=== PATIENT | male | born 1995 | race Caucasian/White ===

== ENCOUNTER 2019-08-22 20:44 | Emergency (ER) | payer BC ==
[~2019-08-22] VITALS: Ht 172.7 cm; Wt 93.0 kg
[2019-08-22 21:08] LABS: BILIRUBIN,URINE NEGATIVE (NEG); CLARITY,URINE CLEAR; COLOR,URINE YELLOW; NITRITE,URINE NEGATIVE (NEG); PH,URINE 8.5; PROTEIN,URINE 30 mg/dL (NEG-TRACE)
[2019-08-22 21:15] LABS: BACTERIA,URINE FEW /HPF (0-FEW); RBC,URINE OCC /HPF (0-2); SQUAMOUS EPITHELIAL CELL,UR FEW /LPF; WBC,URINE OCC /HPF (0-4)
[2019-08-22] MEDS ORDERED: ONDANSETRON PF 4 MG/2 ML VIAL. ONE (21:17)
[2019-08-22] MEDS ORDERED: IV NORMAL SALINE 1000ML BAG 1,000 ML IV ONE (21:30)
[2019-08-22 21:34] LABS: BASO # 0.1 x10^3/uL (0.0-0.2); BASO % 1 % (0-3); EOS % 0 % (0-3); HEMATOCRIT 46.7 % (39.0-53.0); HEMOGLOBIN 16.1 g/dL (13.0-17.5); LYMPH # 1.6 x10^3/uL (1.0-4.8); LYMPH % 11 % (24-48); MEAN CORPUSCULAR HEMOGLOBIN 29 pg (25-35); MEAN CORPUSCULAR HGB CONC 34 g/dL (31-37); MEAN CORPUSCULAR VOLUME 85 fL (79-100); MONO # 0.8 x10^3/uL (0.0-1.1); MONO % 5 % (0-9); NEUT % 83 % (31-73); PLATELET COUNT 291 x10^3/uL (140-400); RED BLOOD COUNT 5.51 x10^6/uL (4.30-5.70); RED CELL DISTRIBUTION WIDTH 12.7 % (11.5-14.5); WHITE BLOOD COUNT 14.5 x10^3/uL (4.0-11.0)
[2019-08-22 21:43] LABS: CALCIUM 9.4 mg/dL (8.5-10.1); CREATININE 1.1 mg/dL (0.7-1.3); GFR 80.9; POTASSIUM 3.7 mmol/L (3.5-5.1)
[2019-08-22] MEDS ORDERED: ONDANSETRON PF 4 MG/2 ML VIAL. IV ONE (21:45)
[2019-08-22 21:49] LABS: ALBUMIN/GLOBULIN RATIO 0.8 (1.0-1.7); TOTAL BILIRUBIN 0.8 mg/dL (0.2-1.0); TOTAL PROTEIN 8.8 g/dL (6.4-8.2)
[2019-08-22] MEDS ORDERED: ONDA4TAB11 PO (22:56)
[2019-08-22] MEDS ORDERED: CYCL10TA2 PO (22:56)
--- NOTE | 2019-08-22 22:57 | PHYS DOC ---
Past Medical History Past Medical History: No Pertinent History (DAHIANA TOBIAS APRN) Additional Past Surgical Histo: LEFT ARM SURGERY, WISDOM TEETH (DAHIANA TOBIAS APRN) Alcohol Use: Rarely Drug Use: Marijuana (DAHIANA TOBIAS APRN) Attending Signature I have participated in the care of this patient and I have reviewed and agree with all pertinent clinical information above including history, exam, and recommendations. (ROSETTE ZALDIVAR MD) Adult General Chief Complaint Chief Complaint: NAUSEA/VOMITING/DIARRHA HPI HPI Patient is a 24 year old male, accompanied by his girlfriend, who presents to the emergency department with complaints of bilateral mid back pain for the last 3 days. Patient states that he thinks it is due to the lower back he has been having to wear for over 8 hours a day at work for the last 2 weeks. He denies any numbness, tingling, or weakness of his extremities. Patient denies any saddle anesthesia, or loss of bowel/bladder control. States he has tried taking Tylenol or ibuprofen for relief of the pain with no relief of his symptoms. Patient denies any injury, cough, shortness of breath, chest pain, palpitations, or wheezing. The patient states that today he began to have nausea, vomiting, and diarrhea. He denies any blood in his vomit or his stools. Patient states he has vomited over 15 times today and he has had 3 episodes of loose diarrhea. He denies any abdominal pain, fever, dysuria, hematuria, or increased urinary frequency. Patient states he did notice earlier that his back pain seemed to increase when he was urinating. Really he rates his discomfort a 10 out of 10 on the pain scale, he denies any alleviating factors. The back pain increases with movement and activity. (DAHIANA TOBIAS APRN) Review of Systems Review of Systems Constitutional: Denies fever Eyes: Denies change in visual acuity, redness, or eye pain [] HENT: Denies nasal congestion or sore throat [] Respiratory: Denies cough or shortness of breath [] Cardiovascular: No additional information not addressed in HPI [] GI: see HPI : Denies dysuria or hematuria [] Musculoskeletal: see HPI Integument: Denies rash or skin lesions [] Neurologic: Denies headache, focal weakness or sensory changes [] Complete systems were reviewed and found to be within normal limits, except as documented in this note. (DAHIANA TOBIAS APRN) Current Medications Current Medications Current Medications Medications (Trade) Dose Ordered Sig/Evelin Start Time Stop Time Status Last Admin Dose Admin Ondansetron HCl (Zofran) 4 mg 1X ONCE 08/22/19 21:45 08/22/19 21:46 DC 08/22/19 21:41 4 MG Sodium Chloride 1,000 ml @ 1,000 mls/hr 1X ONCE 08/22/19 21:30 08/22/19 22:29 DC 08/22/19 21:42 1,000 MLS/HR (ROSETTE ZALDIVAR MD) Allergies Allergies Allergies Coded Allergies Type Severity Reaction Last Updated Verified Anesthetics - Amide Type Allergy Unknown 08/22/19 Yes Anesthetics - Maricel Type- Parabens Allergy Unknown 08/22/19 Yes (ROSETTE ZALDIVAR MD) Physical Exam Physical Exam Constitutional: Well developed, well nourished, no acute distress, non-toxic appearance. [] HENT: Normocephalic, atraumatic, bilateral external ears normal, no oral exudates, nose normal; dry mucous membranes and lips noted Eyes: PERRLA, EOMI, conjunctiva normal, no discharge. [] Neck: Normal range of motion, no stridor. [] Cardiovascular:Heart rate regular rhythm Lungs & Thorax: Bilateral breath sounds clear to auscultation [] Abdomen: Bowel sounds normal, soft, no tenderness, no masses, no pulsatile masses. [] Skin: Warm, dry, no erythema, no rash. [] Back: No bony tenderness, no CVA tenderness; bilateral thoracic paraspinal tenderness to palpation [] Extremities: No cyanosis, no clubbing, ROM intact, no edema. [] Neurologic: Alert and oriented X 3, no focal deficits noted. [] Psychologic: Affect normal, judgement normal, mood normal. [] (DAHIANA TOBIAS APRN) Current Patient Data Vital Signs Vital Signs Date Time Temp Pulse Resp B/P (MAP) Pulse Ox O2 Delivery O2 Flow Rate FiO2 08/22/19 23:01 84 18 123/72 (89) 99 Room Air 08/22/19 20:55 98.4 98.4 (ROSETTE ZALDIVAR MD) Lab Values Laboratory Tests Test 08/22/19 20:50 08/22/19 21:27 Urine Collection Type Void Urine Color Yellow Urine Clarity Clear Urine pH 8.5 Urine Specific Hart >=1.030 Urine Protein 30 mg/dL (NEG-TRACE) Urine Glucose (UA) Negative mg/dL (NEG) Urine Ketones (Stick) Negative mg/dL (NEG) Urine Blood Negative (NEG) Urine Nitrite Negative (NEG) Urine Bilirubin Negative (NEG) Urine Urobilinogen Dipstick 1.0 mg/dL (0.2 mg/dL) Urine Leukocyte Esterase Negative (NEG) Urine RBC Occ /HPF (0-2) Urine WBC Occ /HPF (0-4) Urine Squamous Epithelial Cells Few /LPF Urine Bacteria Few /HPF (0-FEW) Urine Mucus Marked /LPF White Blood Count 14.5 x10^3/uL (4.0-11.0) H Red Blood Count 5.51 x10^6/uL (4.30-5.70) Hemoglobin 16.1 g/dL (13.0-17.5) Hematocrit 46.7 % (39.0-53.0) Mean Corpuscular Volume 85 fL (79-100) Mean Corpuscular Hemoglobin 29 pg (25-35) Mean Corpuscular Hemoglobin Concent 34 g/dL (31-37) Red Cell Distribution Width 12.7 % (11.5-14.5) Platelet Count 291 x10^3/uL (140-400) Neutrophils (%) (Auto) 83 % (31-73) H Lymphocytes (%) (Auto) 11 % (24-48) L Monocytes (%) (Auto) 5 % (0-9) Eosinophils (%) (Auto) 0 % (0-3) Basophils (%) (Auto) 1 % (0-3) Neutrophils # (Auto) 12.0 x10^3/uL (1.8-7.7) H Lymphocytes # (Auto) 1.6 x10^3/uL (1.0-4.8) Monocytes # (Auto) 0.8 x10^3/uL (0.0-1.1) Eosinophils # (Auto) 0.0 x10^3/uL (0.0-0.7) Basophils # (Auto) 0.1 x10^3/uL (0.0-0.2) Sodium Level 138 mmol/L (136-145) Potassium Level 3.7 mmol/L (3.5-5.1) Chloride Level 97 mmol/L (98-107) L Carbon Dioxide Level 27 mmol/L (21-32) Anion Gap 14 (6-14) Blood Urea Nitrogen 15 mg/dL (8-26) Creatinine 1.1 mg/dL (0.7-1.3) Estimated GFR (Cockcroft-Gault) 80.9 BUN/Creatinine Ratio 14 (6-20) Glucose Level 109 mg/dL (70-99) H Calcium Level 9.4 mg/dL (8.5-10.1) Total Bilirubin 0.8 mg/dL (0.2-1.0) Aspartate Amino Transferase (AST) 23 U/L (15-37) Alanine Aminotransferase (ALT) 42 U/L (16-63) Alkaline Phosphatase 92 U/L (46-116) Total Protein 8.8 g/dL (6.4-8.2) H Albumin 4.0 g/dL (3.4-5.0) Albumin/Globulin Ratio 0.8 (1.0-1.7) L Lipase 156 U/L (73-393) Laboratory Tests 08/22/19 21:27 Laboratory Tests 08/22/19 21:27 (ROSETTE ZALDIVAR MD) EKG EKG [] (DAHIANA TOBIAS APRN) Radiology/Procedures Radiology/Procedures [] (DAHIANA TOBIAS APRN) Course & Med Decision Making Course & Med Decision Making Pertinent Labs and Imaging studies reviewed. (See chart for details) Patient is a 24-year-old male who presents to the emergency department with complaints of back pain for 3 days and nausea vomiting and diarrhea that began today. His UA was unremarkable, CBC revealed a mildly elevated white blood cell count of 14.5, P revealed a chloride of 95, glucose of 109, total protein of 8.8. Urinalysis was negative for any concerns of urinary tract infection or hematuria. Patient was given a liter of normal saline, 4 mg of Zofran in the emergency department. He reported feeling better after these medications. Prescriptions written for Flexeril and Zofran to take as needed for back pain and nausea. Patient was instructed to follow-up with his primary care doctor if symptoms persist on Saturday. Return to the ER if symptoms worsen. Patient verbalized an understanding of home care, medications, follow-up, and return to ED instructions and was in agreement with the plan of care. (DAHIANA TOBIAS APRN) Dragon Disclaimer Dragon Disclaimer This electronic medical record was generated, in whole or in part, using a voice recognition dictation system. (DAHIANA TOBIAS APRN) Departure Departure Impression: Primary Impression: Nausea, vomiting, and diarrhea Additional Impression: Acute bilateral thoracic back pain Disposition: HOME, SELF-CARE Condition: STABLE Referrals: NO PCP (PCP) Patient Instructions: Back Pain, Adult, [id number], Diarrhea, [id number], Diet for Diarrhea, Adult, Nausea and Vomiting, [id number] Additional Instructions: Fill prescriptions and use them as directed. Recommend clear fluids for the next 24 hours. Then you may advance to bland foods such as bananas, rice, applesauce, and dry toast. Apply heat or ice for to sore areas as needed for comfort. Activity as tolerated. Follow-up with your primary care doctor in the next 1-2 days. Return to the emergency room if your symptoms worsen. Scripts Ondansetron Hcl (ONDANSETRON HCL) 4 Mg Tablet 1 TAB PO PRN Q6HRS PRN for NAUSEA/VOMITING for 3 Days, #10 TAB 0 Refills Prov: DAHIANA TOBIAS APRN 08/22/19 Cyclobenzaprine Hcl (CYCLOBENZAPRINE HCL) 10 Mg Tablet 1 TAB PO TID PRN for MUSCLE PAIN for 10 Days, #30 TAB 0 Refills Prov: DAHIANA TOBIAS APRN 08/22/19 Problem Qualifiers DAHIANA TOBIAS APRN Aug 22, 2019 22:57 ROSETTE ZALDIVAR MD Aug 22, 2019 23:52
[2019-08-22 23:01] VITALS: BP 123/72
== END 2019-08-22 23:20 | disposition home or self-care (01) ==
LOC: ER 20:44
DX: R11.2 Nausea with vomiting, unspecified (principal); R19.7 Diarrhea, unspecified; M54.6 Pain in thoracic spine; Z98.890 Other specified postprocedural states; F12.90 Cannabis use, unspecified, uncomplicated; Z88.4 Allergy status to anesthetic agent
CPT/HCPCS: 36415; 80053; 81001; 83690; 85025; 96361; 96374; 99285; J2405; J7030